=== PATIENT | female | born 1990 | race Caucasian/White ===

== ENCOUNTER 2022-03-11 07:29 | Outpatient (CLI) | payer BC, SELFPAY ==
--- NOTE | 2022-03-12 15:49 | WPDHOMESLEEP ---
Sleep Study - Home Unattended Date of Study: 03/11/22 Ordering Provider: Kaushik Holman MD Interpreting Provider: Roopa Del Rio, DO Home Sleep Study Type: Apnea Link Air Height: 1.65 m Weight: 81.647 kg Body Mass Index: 29.9 Neck Circumference (inches): 17 [place]: 10 Reason for Sleep Study Unrefreshing sleep and morning headaches. Sleep History The patient is a 31-year-old female with anxiety and GERD that had a home sleep test ordered by her primary care physician due to unrefreshing sleep and headaches. The patient denies awakening from sleep short of breath. She occasionally awakens at night with heartburn, belching or cough. She occasionally snores but it is never loud enough that others complain. She occasionally has trouble sleeping when she has a cold. She denies waking up gasping for air throughout the night. She denies having breathing problems at night observed by herself or others. She denies sweating excessively at night. She occasionally has heart palpitations or irregular heartbeats during the night. She occasionally falls asleep during the day but never while driving. She occasionally has trouble at work due to sleepiness. She denies sleep paralysis and cataplexy. She occasionally experiences vivid dreamlike scenes upon awakening or falling asleep. She occasionally has nightmares. She frequently remembers her dreams. She constantly has thoughts racing through her mind. She occasionally feels sad or depressed. She frequently has anxiety. She denies noticing parts of her body jerk. She rarely kicks during the night. She denies having crawling and aching feelings in her legs as well as leg pain during the night. She is unsure if she grinds her teeth but never awakens with morning jaw pain. She denies being bothered by pain during the day and being awakened by pain during the night. She occasionally wakes up feeling stiff in the morning with sore achy muscles. She rarely wakes up with pain in the neck, spine or other joints. She goes to bed at 10:00 p.m. on weekdays and between 10 and 11:00 p.m. on the weekends. It takes her 5-10 minutes to fall asleep. She wakes up twice throughout the night to use the restroom and take care of her child. She is able to fall back asleep quickly. She wakes up between 7 and 8:00 a.m. on the weekdays and between 8 9:00 a.m. on the weekends. She typically gets 7-8 hours of sleep per night. She will stay in bed for 10 minutes after waking up in the morning. She currently lives with her and child. She does not consume any caffeinated beverages within 2 hours of bedtime. She will occasionally exercise before bedtime. She will watch television before falling asleep. She will occasionally take naps in the afternoon or the evening and they are refreshing. She drinks 1-2 caffeinated beverages per day. He drinks 2-3 alcoholic beverages per week. She denies tobacco recreational drug use. [facility] Past Medical History Medical History BMI 29.0-29.9,adult Chronic anxiety Chronic tension-type headache, not intractable Constipation COVID-19 (12/03/21) positive test 12/04/2021. Fully vaccinated Encounter for screening for other viral diseases Fatigue Frequent headaches Hypersomnia Migraine without aura and without status migrainosus, not intractable Musculoskeletal neck pain UTI (urinary tract infection) Vitamin B12 deficiency anemia (04/19/20) Level low at 292 with goal greater than 400 on 04/19/2020 Wellness examination Family History Family History Father Hypertension Grandparent Diabetes mellitus Grandparent Lung cancer Grandparent Heart disease Social History Social History Smoking status: Never smoker Alcohol intake: current Drinks per week: 2 Alcohol use details: Beer o
[2022-03-12 16:01] VITALS: BMI 29.9
== END 2022-03-12 12:57 | disposition home or self-care (01) ==
LOC: ANHCSM 07:36
PROVIDERS: PCP Family Medicine; Visit Provider Family Medicine
DX: G47.9 Sleep disorder, unspecified (principal)
CPT/HCPCS: 95806

== ENCOUNTER 2023-02-11 08:42 | Outpatient (CLI) | payer BC, SELFPAY ==
--- NOTE | 2023-02-11 08:54 | ECG_ITS ---
Measurements Intervals [place] Rate: 105 P: 66 MT: 123 QRS: 83 QRSD: 85 T: -49 QT: 343 QTc: 455 Interpretive Statements SINUS TACHYCARDIA ST-T WAVE ABNORMALITY IN ANTEROLAT/INF LEADS- CONSIDER ISCHEMIA ABNORMAL ECG NO PREVIOUS ECG AVAILABLE FOR COMPARISON Electronically Signed On 02-11-2023 9:16:55 CDT by Bebeto Talley D.O.
== END 2023-02-11 08:43 | disposition home or self-care (01) ==
LOC: ANHCARD 08:44
PROVIDERS: PCP Family Medicine; Visit Provider Obstetrics & Gynecology
DX: R07.9 Chest pain, unspecified (principal); R06.02 Shortness of breath; R00.9 Unspecified abnormalities of heart beat; R94.31 Abnormal electrocardiogram [ECG] [EKG]
CPT/HCPCS: 93005

== ENCOUNTER 2023-03-18 12:35 | Outpatient (CLI) | payer BC, SELFPAY ==
--- NOTE | 2023-03-18 12:51 | ECHO_ITS ---
Patient Info Name: Gretchen Whitley Age: 32 years : 1990 Gender: Female Ht: 65 in Wt: 210 lbs BSA: 2.13 m2 HR: 97 bpm BP: 118 / 76 mmHg Technical Quality: Good Exam Date: 03/18/2023 1:02 PM Exam Location: [facility] Patient Status: Outpatient Admit Date: 03/18/2023 Staff Ordering Physician: Rufino Sam MD [employer] Department Supervisor: Luis Zamarripa RDCS, RT Attending Provider: Rufino Sam MD Referring Physician: Flaco RING; Exam Type: CA echo doppler color flow Study Info Indications R00.0 - Tachycardia, unspecified Complete two-dimensional, color flow and Doppler transthoracic echocardiogram is performed. Strain analysis performed. Summary 1. Complete two-dimensional, color flow and Doppler transthoracic echocardiogram is performed. 2. Left ventricular chamber dimension is normal. 3. Left ventricular systolic function is normal, estimated at 60-65%. 4. The left ventricular diastolic function is grade I diastolic dysfunction. 5. E/e' 5 is not elevated. 6. Global longitudinal strain is normal at -19.1%. 7. There is trace tricuspid valve regurgitation. Left Ventricle E/e' 5 is not elevated. Global longitudinal strain is normal at -19.1%. Left ventricular chamber dimension is normal. Left ventricular systolic function is normal, estimated at 60-65%. The left ventricular diastolic function is grade I diastolic dysfunction. Right Ventricle Right ventricular systolic function is normal and with normal TAPSE 2.1 cm. Right ventricular chamber dimension is normal. Left Atria Left atrial chamber dimension is normal. Right Atria Right atrial chamber dimension is normal. Aortic Valve The aortic valve is trileaflet. There is no aortic valve stenosis. There is no aortic valve regurgitation. Pulmonic Valve There is no pulmonic regurgitation. Mitral Valve There is no mitral valve stenosis. There is no mitral valve regurgitation. Tricuspid Valve There is trace tricuspid valve regurgitation. RVSP is not calculated due to an inadequate TR jet. Pericardium/Pleural There is no pericardial effusion. Inferior Vena Cava Normal inferior vena cava with >50% collapse upon inspiration consistent with normal right atrial pressure, 5 mmHg. Aorta The aortic root size at the sinus of Valsalva is normal. Left Ventricular Outflow Tract Name Value Normal LVOT 2D LVOT Diameter 2.0 cm LVOT Doppler LVOT Peak Gradient 4 mmHg LVOT Mean Gradient 3 mmHg LVOT VTI 19 cm LVOT VTI/AV VTI Ratio 0.8 LVOT Stroke Volume 62 ml LVOT CO 6.6 l/min LVOT CI 3.1 l/min/m2 Mitral Valve Name Value Normal MV Doppler MV Decel [place]
== END 2023-03-18 12:36 | disposition home or self-care (01) ==
LOC: ANHCARD 12:36
PROVIDERS: PCP Family Medicine; Visit Provider Obstetrics & Gynecology
DX: R07.9 Chest pain, unspecified (principal); R00.0 Tachycardia, unspecified
CPT/HCPCS: 93306

== ENCOUNTER → 2023-04-11 08:45 | Outpatient (CLI) | payer BC, SELFPAY ==
--- NOTE | ~2023-04-11 | US_ITS ---
EXAMINATION:US venous doppler LE LT INDICATION:Calf pain. TECHNIQUE: Multiple grayscale, color flow and Doppler images of the left lower extremity deep venous systems were obtained and reviewed. COMPARISON:No prior studies for comparison. FINDINGS: The common femoral, superficial femoral and popliteal veins demonstrate normal respiratory variation, augmentation and compressibility. Color flow is also seen within the posterior tibial, pe roneal, greater saphenous and profunda veins. IMPRESSION: 1: No lower extremity deep venous thrombosis. Reviewed, dictated and finalized at location B.
== END ==
PROVIDERS: PCP Family Medicine; Visit Provider Student in an Organized Health Care Education/Training Program
DX: M79.662 Pain in left lower leg (principal); M79.89 Other specified soft tissue disorders
CPT/HCPCS: 93971

== ENCOUNTER → 2023-04-14 08:58 | Outpatient (CLI) | payer BC, SELFPAY ==
--- NOTE | ~2023-04-14 | US_ITS ---
EXAMINATION: US OB follow up DATE: 04/14/2023 09:27 INDICATION: Encounter for supervision abnormal TECHNIQUE: Real-time transabdominal obstetric ultrasound. FINDINGS: No prior studies for comparison. There is a single living fetus in vertex presentation. The placenta is posterior without placenta pr evia. cardiac activity and movement is noted with a heart rate of 145 beats per minute. T he amniotic fluid volume is normal. ADRIANNA measures 23.9 cm. The following biometric data were obtained: BPD: 91mm corresponds to gestational age 36 weeks 6 days. Head circumference: 338mm corresponds to gestational age 38 weeks 5 days. Abdominal circumference: 351mm corresponds to gestational age 39 weeks 0 days. Femur length: 74mm corresponds to gestational age 38 weeks 0 days. Estimated weight: 3502grams +/- 525grams.] IMPRESSION: 1. Single living intrauterine in vertex presentation with an estimated gestational age of 38 weeks 1 days by current ultrasound. 2. Normal ADRIANNA measures 23.9 cm (normal range 7.7-24.9 cm).. Reviewed, dictated and finalized at location B. IMPRESSION: 1. Single living intrauterine in vertex presentation with an estimat ed gestational age of 38 weeks 1 days by current ultrasound. 2. Normal ADRIANNA measures 23.9 cm (normal range 7.7-24.9 cm)..
== END ==
PROVIDERS: PCP Family Medicine; Visit Provider Obstetrics & Gynecology
DX: Z34.93 Encounter for supervision of normal pregnancy, unspecified, third trimester (principal); Z3A.38 38 weeks gestation of pregnancy
CPT/HCPCS: 76816

== ENCOUNTER 2023-04-21 23:42 | Inpatient (IN) | payer BC, SELFPAY ==
[2023-04-22] VITALS (45 sets, daily range): BP systolic 93–136; BP diastolic 56–89; PULSE 90–143; RESP 16–18; TEMP 36.6–37.7; O2SAT 98–100; BMI 36.6
--- NOTE | 2023-04-22 01:46 | LDADM ---
This patient, Gretchen Whitley, was admitted to Labor/Delivery/Recovery 104 on 04/21/23 at 23:42. Plans for labor, pain management and were discussed with patient. Patient/family oriented to hospital policies and general routines including ID bracelet, bed and alarms, visiting hours, pain management, procedures, bathroom and other care routines, personal items, smoking policy, room service/diet and guest tray routines, security routines, and visiting hours. Patient/Family are encouraged to report perceived risks to care and to ask questions if they do not understand what they are told or what they should do. See OBIX for further documentation.
[2023-04-22 02:20] LABS: Basophils Percent Auto 0.2 % (0.2-1.2); Eosinophils Percent Auto 0.2 % (0-4.4); Hemoglobin 10.3 g/dL (12.0-15.0); Immature Granulocyte Absolute 0.09 K/mm3 (0.00-0.031); Lymphocytes Absolute Auto 1.67 K/mm3 (0.9-3.2); Mean Corpuscular HGB Conc 32.2 g/dl (32-36); Mean Corpuscular Volume 90.1 fl (80-100); Mean Platelet Volume 10.4 fl (7.4-10.4); Monocytes Absolute Auto 0.9 K/mm3 (0.1-0.6); Monocytes Percent Auto 9.3 % (2.6-8.5); Neutrophils Absolute Auto 6.6 K/mm3 (1.3-6.7); Neutrophils Percent Auto 71.3 % (45.5-73.1); Platelet Count Result 240 k/mm3 (150-375); Red Blood Count 3.55 M/mm3 (4.2-5.4); Red Cell Distribution Width 15.8 % (11.5-14.5); White Blood Count 9.3 K/mm3 (4.5-10.0)
--- NOTE | 2023-04-22 05:53 | PM.IMHP ---
H&P: HPI History of Present Illness Date/Time: 04/22/23 05:53 Chief Complaint: leakage of fluid Narrative: Gretchen is a 33yo @ 37.2wks who presented with leakage of fluid at 2305; clear. She was found to be 2.5cm but made change to 6cm. She has had normal care. Review of Systems Constitutional: Constitutional: Denies chills and Denies fever(s) Eyes: Eyes: Denies change in vision Cardiovascular: Cardiovascular: Denies chest pain and Denies dyspnea Respiratory: Respiratory: Denies dyspnea Genitourinary: Genitourinary: Reports vaginal discharge [facility] Past Medical History Medical History Abnormal Pap smear of cervix 07/17/2017- ascus -hpv Amenorrhea Anxiety BMI 29.0-29.9,adult Chronic anxiety Chronic tension-type headache, not intractable Constipation COVID-19 (12/03/21) positive test 12/04/2021. Fully vaccinated COVID-19 (05/21/22) 2nd episode testing positive 05/22/2022. Encounter for screening for other viral diseases Fatigue Frequent headaches Hypersomnia Home Sleep study on 03/11/2022 reveals no significant sleep apnea with AHI of 3.2. Consider split night sleep study in the lab. Migraine without aura and without status migrainosus, not intractable Musculoskeletal neck pain Normal in multigravida in third trimester Overweight (BMI 25.0-29.9) Rapid heart beat (~01/2023) Echocardiogram 03/18/2023 with ejection fraction 60-65% with grade 1 diastolic dysfunction and trace tricuspid valve regurgitation. UTI (urinary tract infection) Vaginal delivery 01/11/17 Mattie cord around neck/not breathing Vitamin B12 deficiency anemia (04/19/20) Level low at 292 with goal greater than 400 on 04/19/2020 Wellness examination Family History Family History Father Hypertension Grandparent Diabetes mellitus Acute myocardial infarction maternal grandfather Breast cancer maternal grandmother Grandparent Lung cancer Grandparent Heart disease Social History Social History Smoking status: Never smoker Alcohol intake: former Drinks per week: 2 Alcohol use details: Beer or wine 1 -2 drinks weekly Substance use: never Substance use type: does not use Lack of Transportation: No Lack of Food: Never True Current Housing: I Have Housing Concerned About Future Housing: No Difficulty Paying Gas/Electric Bills: No Difficulty Paying for Meds: No Currently Unemployed: No Education: Associate Degree Difficulty w/ Childcare or Family Care: No Living arrangements: other Additional living arrangements comments: Occupation/Education: occupation 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 Gender identity (if verbalized by the patient): Female Sexual Orientation (if Verbalized by the Patient): Straight or Heterosexual Spiritual care concerns: No Meds Home Medications and Allergies Home Medications Medication Instructions Recorded Confirmed Type prenat.vits,burke,imh-dbyf-corxu 1 tablet PO DAILY 06/19/22 04/16/23 History sertraline 50 mg tablet 50 mg PO DAILY #90 tabs 10/01/22 04/16/23 Rx ferrous sulfate 325 mg (65 mg 325 mg PO DAILY 03/18/23 04/16/23 History iron) tablet Allergies Allergy/AdvReac Type Severity Reaction Status Date / Time No Known Allergies Allergy Verified 04/16/23 08:47 Vital Signs Vital Signs - 24 hr 04/22/23 00:44 04/22/23 00:49 04/22/23 00:54 Pulse Rate 100 Blood Pressure 131/89 Pulse Oximetry 100 100 100 Oxygen Delivery 04/22/23 04:15 04/22/23 04:25 04/22/23 04:30 Pulse Rate 90 Blood Pressure 120/67 Pulse Oximetry 99 100 Oxygen Delivery 04/22/23 05:22 04/22/23 05:24 04/22/23 05:27 Pulse Rate 104 H Blood Pressure 114/68 Pulse Oximetry 100 100 Oxygen Deli
--- NOTE | 2023-04-22 06:04 | WPDHPUPDATE1 ---
History and Physical Update Update Date/Time: 04/22/23 06:04 History and Physical has been reviewed, including an updated exam of the patient. There are NO changes in the patient's condition. Risks, benefits, and alternatives have been discussed and questions answered. Patient agrees to proceed with procedure.
[2023-04-22] MEDS: OXYTOCIN 30 UNITS/NS 500 ML 30 UNITS/500 ML BAG IV CONT (07:10)
[2023-04-22] MEDS: LACTATED RINGERS 1,000 ML 125 ML IV CONT (07:10)
[2023-04-22] MEDS: OXYTOCIN 30 UNITS/NS 500 ML 30 UNITS/500 ML BAG 125 UNITS IV CONT (08:58)
[2023-04-22] MEDS: miSOPROStol 200 MCG TABLET 1000 MCG RECTAL (09:22)
[2023-04-22 09:24] LABS: Rapid Plasma Reagin Non-Reactive (NonReactive)
--- NOTE | 2023-04-22 09:45 | WPDHPUPDATE1 ---
History and Physical Update Update Date/Time: 04/22/23 09:45 History and Physical has been reviewed, including an updated exam of the patient. There are NO changes in the patient's condition. Risks, benefits, and alternatives have been discussed and questions answered. Patient agrees to proceed with procedure.
--- NOTE | 2023-04-22 09:45 | WPDOBADMIT ---
Obstetrics - Admit Note Admission Note: record reviewed. No pertinent additions to the history and/or any subsequent changes in the physical findings that are not consistent with the expected course of the were found. Additions to the history and/or subsequent changes in the physical findings follow. None.
--- NOTE | 2023-04-22 09:46 | P.PCNOB_ITS ---
OB - Delivery Note Procedure Delivery augmentation: Rupture of Membranes and Pitocin Delivery monitor: External FHT and External Uterine Route of delivery: Episiotomy description: None Laceration Description: Perineal - 2nd Degree Delivery repair: chromic Specimen: No Quantitative Blood Loss (ml): 500 Anesthesia type: Local Disposition: Floor Complications: None Narrative: patient prepped and draped in usual manner for this procedure. Maternal expulsive efforts readily delivered vertex over intact perineum and with further pushing the rest of baby was delivered. Cord clamped cut baby was placed on maternal abdomen. Placenta delivered spontaneously uterus was well contracted. Cervix vagina were inspected with second-degree laceration noted. This was injected with lidocaine and approximated using 2-0 chromic. Vaginal tissue was approximated running interlocking manner, deep tissue approximated in subcuticular layer on the perineum. This point there was no significant bleeding the patient and baby were both doing well. [place] Baby Weeks of gestation at delivery: 37 gender: Female Weight (pounds): 8 Weight (ounces): 14 presentation: vertex Placenta delivery description: Spontaneous Cord Vessel Description: 3 Vessels score one minute: 8 score five minutes: 9 AMG Delivery Billing Delivery Delivery: Delivery Charge
[2023-04-22] MEDS: IBUPROFEN 600 MG TABLET PO ×2 (10:30→20:59)
[2023-04-22] MEDS: WITCH HAZEL 40 PADS 1 PAD TOPICAL (10:30)
[2023-04-22] MEDS: BENZOCAINE 20% AER SPR (*SP) 56 GM CAN 1 SPRAY TOPICAL (10:30)
--- NOTE | 2023-04-22 10:47 | PC.NURSE ---
Patient transferred to post room #290 via wheel chair. Support person present. Oriented to unit, room, information board, rooming in, admission packet and security measures. Patient verbalizes understanding.
[2023-04-22] MEDS: POLYSACCHARIDE IRON COMPLEX 150 MG CAPSULE PO (17:47)
--- NOTE | 2023-04-22 18:46 | PC.NURSE ---
174 Patient inquired about taking a shower. RN advised patient that she shouldn't shower at this time due to her having two dizzy spells since delivery. Patient was also inquiring about whether or not she needed to keep her IV. RN advised patient that she needed to keep her saline lock IV because she is a high hemorrhage risk due to the amount of blood she lost at delivery and in recovery. Patient advised again to call out for assistance from an RN to go to the bathroom since she was dizzy @ 1545 the last time she was up. 181 Patient called RN to her room, she had her help her to the bathroom, she was sitting on the toilet and insisted to get in the shower despite the RN advising against it at this time due to her previous dizzy spells. She said she felt fine and would like to get in the shower now. RN got the patient a shower chair, covered her IV and advised her and her that if she started to not feel good, to turn the shower off and pull the emergency cord. Pt agreed.
[2023-04-23 05:05] VITALS: BP 112/71; PULSE 94; RESP 18; TEMP 36.6; O2SAT 99
[2023-04-23 05:30] LABS: Hematocrit 23.2 % (37.0-47.0); Hemoglobin 7.4 g/dL (12.0-15.0)
[2023-04-23 08:00] VITALS: PULSE 80; RESP 18; O2SAT 100
[2023-04-23 08:05] VITALS: BP 107/73; PULSE 80; RESP 18; TEMP 36.9; O2SAT 100
[2023-04-23] MEDS: POLYSACCHARIDE IRON COMPLEX 150 MG CAPSULE PO ×2 (10:13→16:11)
[2023-04-23] MEDS: DOCUSATE SODIUM 100 MG CAPSULE PO ×2 (10:13→16:11)
[2023-04-23] MEDS: SERTRALINE HCL 50 MG TABLET PO (10:14)
[2023-04-23] MEDS: MULTIVIT/MIN/PREN/FOL AC/IRON TABLET 1 TAB PO (10:14)
--- NOTE | 2023-04-23 11:53 | PM.OBDSVD ---
DS: Admitting Diagnosis Discharge Date 04/24/2023 Admitting Diagnosis DS: Discharge Diagnosis Discharge Diagnosis (1) , delivered: Code(s): O80 - Encounter for full-term uncomplicated delivery Status: Acute OB - DS: Summary OB Procedures : None OB Procedures Intrapartum: Spontaneous Vag Delivery OB Procedures: : None Time Spent with Patient Time attestation: Total time spent providing and/or coordinating discharge services: DS: Data Data Completed and Pending Labs on day of discharge: Labs from last 24 hours 04/23/23 05:17 Hgb 7.4 L Hct 23.2 L Discharge Plan Discharge Discharging Clinician: Rufino Sam Patient Disposition: Home, Self-Care Activity: may shower, as tolerated and pelvic rest Diet: as tolerated Patient Instructions: Antibiotic Form Stand Alone Forms: General Discharge Information Follow-up/Referrals: Rufino Sam MD [Physician] - 3 Weeks Discharge Medications: New ibuprofen 600 mg Tablet 600 mg PO Q6H PRN (Reason: Cramping) Qty: 30 0RF Continued ferrous sulfate 325 mg (65 mg iron) tablet 325 mg PO DAILY prenat.vits,burke,nmr-qvtg-vsqxe Tablet 1 tablet PO DAILY sertraline 50 mg tablet 50 mg PO DAILY Qty: 90 3RF Date of admission: 04/21/23 23:42 Primary Care Provider: Kaushik Holman Admitting Provider: Rufino Sam Attending physician on admission: Rufino Sam Condition: Stable
[2023-04-23 20:20] VITALS: BP 118/79; PULSE 86; RESP 18; TEMP 36.7; O2SAT 100
[2023-04-24 08:00] VITALS: PULSE 81; RESP 16; O2SAT 100
[2023-04-24] MEDS: MULTIVIT/MIN/PREN/FOL AC/IRON TABLET 1 TAB PO (09:05)
[2023-04-24] MEDS: POLYSACCHARIDE IRON COMPLEX 150 MG CAPSULE PO (09:05)
[2023-04-24] MEDS: SERTRALINE HCL 50 MG TABLET PO (09:05)
[2023-04-24] MEDS: DOCUSATE SODIUM 100 MG CAPSULE PO (09:06)
[2023-04-24 09:10] VITALS: BP 117/74; PULSE 81; RESP 16; TEMP 36.9; O2SAT 100
--- NOTE | 2023-04-24 10:54 | PC.NURSE ---
Patient was given the opportunity to view the discharge video Mother & Baby Care, The First Two Weeks and to ask questions. Patient declined viewing the video and has been given the mother/baby guide for home reference.
[2023-04-26 09:39] VITALS: BP 131/70; PULSE 101; RESP 18; TEMP 36.7; O2SAT 100
== END 2023-04-24 11:40 | disposition home or self-care (01) | DRG 807 ==
LOC: ANHLDR 23:49 → ANHOB2 04-22 10:57
PROVIDERS: Admitting Provider Obstetrics & Gynecology; PCP Family Medicine; Visit Provider Obstetrics & Gynecology
DX: O70.1 Second degree perineal laceration during delivery (principal); Z37.0 Single live birth; Z3A.37 37 weeks gestation of pregnancy
CPT/HCPCS: 36415; 85014; 85018; 85025; 86592; 86850; 86900; 86901; A9270; J2590; J7120